=== PATIENT | female | born 1950 | race Caucasian/White ===

== ENCOUNTER 2016-07-15 20:34 | Emergency (ER) | payer MEDICARE | END 2016-07-15 22:42 | disposition home or self-care (01) | LOC: FER 20:34 | DX: S52.502A Unspecified fracture of the lower end of left radius, initial encounter for closed fracture (principal); M25.512 Pain in left shoulder; W01.0XXA Fall on same level from slipping, tripping and stumbling without subsequent striking against object, initial encounter; Y92.009 Unspecified place in unspecified non-institutional (private) residence as the place of occurrence of the external cause | CPT/HCPCS: 73030; 73100; 73110; J2270 ==